=== PATIENT | male | born 1980 | race Caucasian/White ===

== ENCOUNTER 2025-05-27 23:19 | Emergency (ER) | payer MEDICARE, SELFPAY ==
--- NOTE | 2025-05-27 23:21 | ECG_ITS ---
Test Reason : CP Blood Pressure : */* mmHG Vent. Rate : 56 BPM Atrial Rate : 56 BPM P-R Int : 178 ms QRS Dur : 94 ms QT Int : 468 ms P-R-T Axes : 21 0 46 degrees QTcB Int : 451 ms Sinus bradycardia Septal infarct , age undetermined Abnormal ECG No previous ECGs available Referred By: Generic ED Physician Electronically Signed By: Bacilio Corey
[2025-05-27 23:30] VITALS: BP 91/52; PULSE 55; RESP 16; TEMP 35.9; O2SAT 99; BMI 26.6
[2025-05-27 23:52] LABS: MANUAL DIFF FLAG NO
[2025-05-27 23:53] LABS: Hematocrit 42.8 % (42.0-52.0); Hemoglobin 14.3 g/dl (14.0-18.0); Imm Gran Abs Auto 0.04 X10*3/uL (0.00-0.03); Imm Gran Pct Auto 0.4 % (0.0-0.4); Lymphocytes Absolute Auto 2.4 X10*3/uL (1.2-4.9); Mean Corpuscular HGB Conc 33.4 g/dl (31.0-36.0); Mean Corpuscular Hemoglobin 30.6 pg (27.0-33.0); Mean Corpuscular Volume 91.6 fL (80.0-98.0); NRBC Abs Auto 0.000 X10*3/uL (0.0-0.012); NRBC Pct Auto 0.0 /100WBC (0.0-0.2); Platelet Count 248 X10*3/uL (160-400); Red Blood Count 4.67 X10*6/uL (4.60-5.80); White Blood Count 10.5 X10*3/uL (4.8-10.8)
[2025-05-28 00:02] VITALS: BP 100/59; PULSE 55; RESP 16; O2SAT 97
[2025-05-28 00:07] LABS: Alanine Aminotransferase 15 U/L (0-40); Albumin Level 4.6 g/dL (3.5-5.0); Alkaline Phosphatase 85 U/L (39-117); Anion Gap 14 (12-20); Aspartate Amino Transferase 21 U/L (5-37); Blood Urea Nitrogen 12 mg/dL (9-16); Calcium 9.2 mg/dL (8.4-10.2); Carbon Dioxide 23 mmol/L (22-29); Chloride 108 mmol/L (96-108); Creatinine Clr Calc Pharmacy 120.1; Estimated Glomerular Filt Rate > 60; Potassium 3.6 mmol/L (3.3-5.1); Sodium 141 mmol/L (135-145); Total Protein 7.5 g/dL (6.5-8.0)
--- OUTSIDE RECORDS SUMMARY | 2025-05-28 00:13 | XMS_ITS | Patient Health Record ---
Author Organization [id number] [facility] Address [address] [facility] [address] [place], [place] [id number] Support Name Relationship Address Phone EVETTEYASMIN VAZQUEZCA Emergency Contact [address] [place] [address] DILLAN JAMES Guarantor Unknown [phone] Reason For Referral No Information Plan Of Treatment No Information Insurance Providers Payer Name Payer Address Payer Phone Subscriber Number Group Number Insured Name Patient Relationship to Insured Coverage Start Date Coverage End Date [facility] [address] [place], [place] [id number] DILLAN JAMES Self - patient is the insured 2 2
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
[2025-05-28 00:16] LABS: Troponin-I High Sensitivity < 2.7 ng/L (<3.5-35.0)
--- NOTE | 2025-05-28 00:18 | ED.CHESTPAIN ---
HPI - Chest Pain General Chief Complaint: Chest Pain Stated Complaint: chest pain/ mental health crisis Time Seen by Provider: 05/27/25 23:51 Source: patient Mode of arrival: ambulatory Limitations: no limitations History of Present Illness ED Provider: Dr. Jacome HPI narrative: This is a 45-year-old male presented hospital today for evaluation of depression suicide ideation. Patient stated he had chest pain earlier today however denies any current chest pain at this time. Patient stated that he normally does take psychiatric medicine however he has not been taking it. He has not been following up in clinic due to concern for his safety. Patient does have history opioid use disorder he is currently on methadone 110 mg daily. Related Data Home Medications ?Medication ?Instructions ?Recorded ?Confirmed atorvastatin 80 mg tablet 80 mg PO BEDTIME 05/28/25 05/28/25 carvedilol 6.25 mg tablet 6.25 mg PO BID 05/28/25 05/28/25 gabapentin 300 mg capsule 600 mg PO TID 05/28/25 05/28/25 hydroxyzine pamoate 50 mg capsule 50 mg PO TID PRN anxiety 05/28/25 05/28/25 losartan 25 mg tablet 25 mg PO DAILY 05/28/25 05/28/25 methadone 10 mg/mL oral 110 mg PO DAILY 05/28/25 05/28/25 concentrate (Methadone Intensol) olanzapine 5 mg tablet 5 mg PO BEDTIME 05/28/25 05/28/25 tamsulosin 0.4 mg capsule 0.4 mg PO BEDTIME 05/28/25 05/28/25 topiramate 100 mg tablet 100 mg PO DAILY 05/28/25 05/28/25 trazodone 50 mg tablet 50 mg PO BEDTIME PRN insomnia 05/28/25 05/28/25 Allergies Allergy/AdvReac Type Severity Reaction Status Date / Time quetiapine (From SEROQUEL) AdvReac Intermediate PALPITATION Verified 05/27/25 23:33 S Review of Systems Review of Systems: Pertinent review of systems as mentioned in HPI. All other system otherwise negative. [facility] Past Medical History [facility] Narrative: Medical history as mentioned in HPI Social History Social History Alcohol intake: current Alcohol intake frequency: a few times a month Alcohol type: beer and hard liquor Smoked in Last 30 Days: Yes Use of substances other than those prescribed or required for medical reasons: Yes Substance Use Type: Crack/Cocaine, Heroin and IV Drugs Substance Use Frequency: Daily Substance Use Frequency Other:: every day Last Used Substance: Just Prior to Admission Any prior treatment program specific to substance use: Yes Advance Directives: No Advance Directives Information Provided: Yes Physical Exam Exam: Exam: General: Pleasant, no distress, interacting appropriately Head: Normacephalic, atraumatic ENT: oral mucosa moist, neck supple, no tracheal deviation Cardiovascular: regular rate, regular rhythm, no murmurs, rubbing, gallops Respiratory: CTAB, no wheeze, rales, rhonchi Neurological: Awake and alert, no facial droop noted Skin: Warm and dry Psychiatric: Endorses suicide ideation, depression Vital Signs: Vital Signs: Last Vital Signs Temp 97.9 F 05/28/25 12:39 Pulse 61 05/28/25 12:39 Resp 20 05/28/25 12:39 BP 96/64 05/28/25 12:39 Pulse Ox 97 05/28/25 04:44 O2 Del Method Room Air 05/28/25 04:44 BMI result Body Mass Index 26.6 Course Course Course Narrative: Time: 06:04 Date: 05/28/25 Provider: Ericka Bynum DO Patient in physician observation for psychiatric evaluation.? No acute events reported overnight. No current complaints. VS stable now initially hypotensive but responded to fluids.? Patient is in bed search status. Will continue to monitor. Reevaluation(s) Reevaluation #1: Time: 14:18 Date: 05/28/25 Provider: Ericka Bynum DO Physician observation ended at 145pm. Transfer to [facility] for inpatient psych. Medications Administered Discontinued Medications Generic Name Dose Route Start Last Admin Trade Name Crystal PRN Reason Stop Dose Admin Lactated Ringer's 1,000 mls @ 999 mls/hr 05/28/25 02:00 05/28/25 04:14 Lr IV 05/28/25 03:00 Infused .Q1H1M [facility] Infusion Lactated Ringer's 1,000 mls @ 999 mls/hr 05/28/25 04:15 05/28/25 06:54 Lr IV 05/28/25 05:15 Infused .Q1H1M [facility] Infusion Methadone HCl 40 mg 05/28/25 09:33 05/28/25 10:36 Methadone Hcl 20 Mg/2 Ml Oral.Conc PO 05/28/25 09:34 40 mg ONCE ONE Administration Medical Decision Making Medical Decision Making MDM Narrative: 45-year-old male presented hospital today for depression and suicide ideation. Review patient's EKG no sign of STEMI. Patient's troponin is negative here. Lab work is unremarkable. I do not think this is cardiac ischemia. Patient is currently asymptomatic. We will plan to obtain lab work per psychiatric protocol here. We will plan to consult care team at this time. Patient is medically cleared from my perspective. The care team evaluated the patient, patient is an inpatient bed search Differential Diagnosis Differential Diagnoses: The differential diagnosis associated with the presentation includes ACS, depression, suicide ideation Lab Data 05/27/25 23:47 05/27/25 23:47 Labs: Lab Results 05/27/25 05/27/25 05/28/25 Range/Units 23:47 23:48 02:54 WBC 10.5 (4.8-10.8) X10*3/uL RBC 4.67 (4.60-5.80) X10*6/uL Hgb 14.3 (14.0-18.0) g/dl Hct 42.8 (42.0-52.0) % MCV 91.6 (80.0-98.0) fL MCH 30.6 (27.0-33.0) pg MCHC 33.4 (31.0-36.0) g/dl RDW 14.1 (11.0-16.0) % Plt Count 248 (160-400) X10*3/uL MPV 10.5 (9.4-12.4) fL Immature Gran % (Auto) 0.4 (0.0-0.4) % Neut % (Auto) 69.4 (45-73) % Lymph % (Auto) 23.0 (20-40) % Christian % (Auto) 6.3 (2-11) % Eos % (Auto) 0.5 (0-4) % Baso % (Auto) 0.4 (0-2) % Lymph # (Auto) 2.4 (1.2-4.9) X10*3/uL Christian # (Auto) 0.7 (0.1-1.2) X10*3/uL Eos # (Auto) 0.1 (0.0-0.4) X10*3/uL Baso # (Auto) 0.0 (0.0-0.2) X10*3/uL Abs Immat Gran (auto) 0.04 H (0.00-0.03) X10*3/uL Absolute Neuts (auto) 7.3 (2.0-8.3) x10*3/uL Absolute Nucleated RBC 0.000 (0.0-0.012) X10*3/uL Nucleated RBC % (auto) 0.0 (0.0-0.2) /100WBC Sodium 141 (135-145) mmol/L Potassium 3.6 (3.3-5.1) mmol/L Chloride 108 (96-108) mmol/L Carbon Dioxide 23 (22-29) mmol/L Anion Gap 14 (12-20) BUN 12 (9-16) mg/dL Creatinine 0.76 (0.5-1.4) mg/dL Estim Creat Clear Calc 120.1 Estimated GFR > 60 Random Glucose 116 H (60-115) mg/dL Calcium 9.2 (8.4-10.2) mg/dL Total Bilirubin 0.9 (0.0-1.0) mg/dL AST 21 (5-37) U/L ALT 15 (0-40) U/L Alkaline Phosphatase 85 (39-117) U/L Troponin I High Sens < 2.7 (<3.5-35.0) ng/L Total Protein 7.5 (6.5-8.0) g/dL Albumin 4.6 (3.5-5.0) g/dL Urine Color Yellow Urine Appearance Clear Urine pH 5.5 (5.0-9.0) Ur Specific [place] 1.010 (1.005-1.025) Urine Protein Negative (Neg-Trace) mg/dL Urine Glucose (UA) Negative (Negative) mg/dL Urine Ketones Negative (Negative) mg/dL Urine Blood Negative (Negative) Urine Nitrite Negative (Negative) Ur Leukocyte Esterase Negative (Negative) Urine RBC 0-2 (0-2) /HPF Urine WBC 0-5 (0-5) /HPF Ur Squamous Epith Cells 0-2 (0-2) /HPF Urine Bacteria None Seen (None Seen) Hyaline Casts 0-2 (0-2) /LPF Urine Opiates Screen Not Detected (Not Detect) Ur Buprenorphine Scrn Not Detected (Not Detect) ng/mL Ur Oxycodone Screen Not Detected (Not Detect) ng/mL Urine Methadone Screen Positive H (Not Detect) ng/mL Urine Fentanyl Screen POSITIVE H (Not Detect) Ur Barbiturates Screen Not Detected (Not Detect) Ur Phencyclidine Scrn Not Detected (Not Detect) Ur Amphetamines Screen Not Detected (Not Detect) U Benzodiazepines Scrn Not Detected (Not Detect) Urine Cocaine Screen POSITIVE H (Not Detect) U Marijuana (THC) Screen Not Detected (Not Detect) Ethyl Alcohol < 10 mg/dL Discharge Plan Discharge Clinical Impression: Suicidal ideation Patient Disposition: Xfer Psychiatric Hosp Prescriptions: No Action atorvastatin 80 mg tablet 80 mg PO BEDTIME carvedilol 6.25 mg tablet 6.25 mg PO BID trazodone 50 mg tablet 50 mg PO BEDTIME PRN (Reason: insomnia) olanzapine 5 mg tablet 5 mg PO BEDTIME hydroxyzine pamoate 50 mg capsule 50 mg PO TID PRN (Reason: anxiety) tamsulosin 0.4 mg capsule 0.4 mg PO BEDTIME losartan 25 mg tablet 25 mg PO DAILY gabapentin 300 mg capsule 600 mg PO TID topiramate 100 mg tablet 100 mg PO DAILY methadone [Methadone Intensol] 10 mg/mL Concentrate 110 mg PO DAILY Interventions: Acute Care Transfer Worksheet (ED) Last Done: 05/28/25 12:39 Discharge Date/Time: 05/28/25 14:01 Print Language: Urdu
[2025-05-28] MEDS: Lactated Ringers 1,000 ML 999 ML IV ×2 (02:26→04:22)
[2025-05-28 03:17] LABS: Cannabinoid Screen Urine Not Detected (Not Detect)
[2025-05-28 03:57] VITALS: BP 93/56
[2025-05-28 04:44] VITALS: BP 96/64; PULSE 61; RESP 20; TEMP 36.6; O2SAT 97
--- NOTE | 2025-05-28 05:48 | PC.NURSE ---
called report to Melissa in behavioral unit at this time
--- NOTE | 2025-05-28 06:29 | PC.NURSE ---
walked patient with security to pod without any difficulty
--- NOTE | 2025-05-28 07:21 | PC.NURSE ---
Assumed care, report received. Pt is sleeping and provided breakfast.
[2025-05-28 08:18] LABS: Appearance Urine Clear; Glucose Urine UA Negative (Negative); PH 5.5 (5.0-9.0); Specific Gravity - Urine 1.010 (1.005-1.025)
--- NOTE | 2025-05-28 09:57 | HE.PHANOTE ---
Re Methadone Pt receives 110mg from [facility], last dose was given on 05-19-25 with no take home bottles, so patient has missed ~9 doses.
[2025-05-28] MEDS: methADONE HCl 20 MG/2 ML ORAL.CONC 40 MG PO (10:36)
--- NOTE | 2025-05-28 11:38 | MHC.CARE ---
Addendum entered by Scarlet Mclaughlin RN 05/28/25 13:09: He will now be admitted to [facility]; Address [address] [place] [address]. Original Note: Pt was accepted to [facility]. The address is [address] [place] [id number] The accepting doc is Dr. Vazquez and the ETA is 4pm. CARE Team and pod RN were both notified. No nurse to nurse is required.
[2025-05-28 12:39] VITALS: BP 96/64; PULSE 61; RESP 20; TEMP 36.6
== END 2025-05-28 14:01 ==
PROVIDERS: Emergency Medicine; Emergency Provider Student in an Organized Health Care Education/Training Program
DX: F33.1 Major depressive disorder, recurrent, moderate (principal); R07.89 Other chest pain; R45.851 Suicidal ideations; F14.90 Cocaine use, unspecified, uncomplicated; R11.0 Nausea; Z79.891 Long term (current) use of opiate analgesic; Z79.899 Other long term (current) drug therapy; Z51.81 Encounter for therapeutic drug level monitoring
CPT/HCPCS: 36415; 80053; 80307; 81001; 84484; 85025; 93005; 96360; 96361; 99285; J7120; S9485

== ENCOUNTER → 2025-05-27 23:21 | Outpatient (BNV) | payer MEDICARE, SELFPAY | PROVIDERS: Emergency Provider Student in an Organized Health Care Education/Training Program; Visit Provider Internal Medicine Cardiovascular Disease | DX: R00.1 Bradycardia, unspecified (principal) | CPT/HCPCS: 93010 ==

== ENCOUNTER 2025-06-23 18:14 | Inpatient (IN) | payer MEDICARE, MEDICAID, SELFPAY ==
--- OUTSIDE RECORDS SUMMARY | 2025-06-22 19:37 | XMS_ITS | Encounter Summary ---
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 specimen obtained by clean catch procedure / Unknown Non-blood Collection / Unknown 06/22/2025 8:22 PM EST 06/22/2025 8:50 PM EST Renee Gama MD LAB URINE ORDERABLES Final Res ult Performing Organization Address [facility]/ZIP Co de Phone Number [facility] [address] [place] [address], * (ABNORMAL) Buprenorphine screen, urine (06/22/2025 8:22 PM EST) Buprenorphine Screen Urine Positive (A) Negative LAB CHEMISTRY METHOD 06/22/2025 9:42 PM EST [facility] Urine Urine specimen obtained by clean catch procedure / Unknown Non-blood Collection / Unknown 06/22/2025 8:22 PM EST 06/22/2025 8:50 PM EST Narrative [facility] - 06/22/2025 9:42 PM EST Assay cutoff 5 ng/mL Semi-quantitative assay for screening purposes only. Unconfirmed screening result should not be used for non-medical purposes. *ALTERNATE METHOD CONFIRMATION DONE UPON REQUEST ONLY* Renee Gama MD LAB URINE ORDERABLES Final Res ult Performing Organization Address [facility] de Phone Number [facility] [address] [place] [address], * (ABNORMAL) Drug abuse screen 8a panel, urine (06/22/2025 8:22 PM EST) Amphetamine Screen, Ur Negative Negative LAB CHEMISTRY METHOD 9:51 PM EST [facility] Comment:Certain OTC medicati ons containing ephedrine, phenylephrine, pseudoephedrine and phenylpropanolamine can cause false positive results. Barbiturate Screen, Ur Negative Negative LAB CHEMISTRY METHOD 9:51 PM EST [facility] Benzodiazepine Screen, Ur Negative Negative LAB CHEMISTRY METHOD 5 9:51 PM EST [facility] Cocaine Screen, Ur Positive(A ) Negative LAB CHEMISTRY METHOD 5 9:51 PM [facility] Opiate Screen, Ur Negative Negative LAB CHEMISTRY METHOD 5 9:51 PM [facility] Cannabinoid (THC) Screen, Ur Negative Negative LAB CHEMISTRY METHOD 5 9:51 PM EST [facility] Comment:Specimens from patie nts taking pantoprazole sodium (Protonix) have been shown to produce false positive results. Oxycodone Screen, Ur Negative Negative LAB CHEMISTRY METHOD 5 9:51 PM [facility] Fentanyl, Ur Positive(A ) Negative LAB CHEMISTRY METHOD 9:51 PM [facility] Urine Urine specimen obtained by clean catch procedure / Unknown Non-blood Collection / Unknown 06/22/2025 8:22 PM EST 06/22/2025 8:50 PM EST Narrative [facility] - 06/22/2025 9:51 PM EST Assay cutoffs: Amphetamines 1000 ng/mL Barbiturates 200 ng/mL Benzodiazepines 200 ng/mL Cocaine 300 ng/mL Fentanyl 1 ng/mL Opiates 300 ng/mL Oxycodone 100 ng/mL THC 50 ng/mL Semi-quantitative assay for screening purposes only. Unconfirmed screening result should not be used for non-medical purposes. *ALTERNATE METHOD CONFIRMATION DONE UPON REQUEST ONLY* us Renee Gama MD LAB URINE ORDERABLES Final Res ult [facility] [address] [place] [address], * (ABNORMAL) Salicylate level (06/22/2025 8:22 PM EST) Salicylate Level <1.7(L) 2.0 - 29.0 mg/dL LAB CHEMISTRY METHOD 06/22/2025 9:45 PM EST [facility] Blood Venous blood specimen / Unknown Venipuncture / Unknown 06/22/2025 8:22 PM EST 06/22/2025 8:49 PM EST us Renee Gama MD LAB BLOOD ORDERABLES Final Res ult Performing Organization Address [facility]/ZIP Co de Phone Number [facility] [address] [place] [address], [place] [phone] * (ABNORMAL) Acetaminophen level (06/22/2025 8:22 PM EST) Acetaminophen Level <2.0(L) 10.0 - 30.0 mcg/mL LAB CHEMISTRY METHOD 06/22/2025 9:48 PM EST [facility] Blood Venous blood specimen / Unknown Venipuncture / Unknown 06/22/2025 8:22 PM EST 06/22/2025 8:49 PM EST us Renee Gama MD LAB BLOOD ORDERABLES Final Res ult Performing Organization Address [facility] de Phone Number [facility] [address] [place] [address], [place] [phone] * Ethanol (06/22/2025 8:22 PM EST) Ethanol Level 5 0 - 10 mg/dL LAB CHEMISTRY METHOD 06/22/2025 9:45 PM EST [facility] Blood Venous blood specimen / Unknown Venipuncture / Unknown 06/22/2025 8:22 PM EST 06/22/2025 8:49 PM EST us Renee Gama MD LAB BLOOD ORDERABLES Final Res ult Performing Organization Address City/[facility] Co de Phone Number [facility] [address] [place] [address], [place] [phone] * (ABNORMAL) Comprehensive metabolic panel (06/22/2025 8:22 PM EST) Sodium 139 133 - 145 mmol/L LAB CHEMISTRY METHOD 06/22/2025 9:46 PM [facility] Potassium 4.0 3.5 - 5.5 mmol/L LAB CHEMISTRY METHOD 06/22/2025 9:46 PM [facility] Chloride 104 96 - 110 mmol/L LAB CHEMISTRY METHOD 06/22/2025 9:46 PM [facility] CO2 28 21 - 32 mmol/L LAB CHEMISTRY METHOD 06/22/2025 9:46 PM [facility] Anion Gap 7 3 - 11 LAB CHEMISTRY METHOD 06/22/2025 9:46 PM [facility] Glucose 99 70 - 100 mg/dL LAB CHEMISTRY METHOD 06/22/2025 9:46 PM [facility] BUN 9 5 - 25 mg/dL LAB CHEMISTRY METHOD 06/22/2025 9:46 PM [facility] Creatinine 0.80 0.70 - 1.30 mg/dL LAB CHEMISTRY METHOD 06/22/2025 9:46 PM [facility] eGFR 110 >=60 mL/min/1. 73m2 LAB CHEMISTRY METHOD 06/22/2025 9:46 PM [facility] Comment:Calculation based on the Chronic Kidney Disease Epidemiology Collaboration (CKD-EPI) equation refit without adjustment for race. BUN/Creatinine Ratio 11.3 LAB CHEMISTRY METHOD 06/22/2025 9:46 PM [facility] Calcium 9.4 8.5 - 10.5 mg/dL LAB CHEMISTRY METHOD 06/22/2025 9:46 PM [facility] AST (SGOT) 15 10 - 42 unit/L LAB CHEMISTRY METHOD 06/22/2025 9:46 PM [facility] ALT (SGPT) 37 10 - 60 unit/L LAB CHEMISTRY METHOD 06/22/2025 9:46 PM [facility] Alkaline Phosphatase 98 42 - 121 unit/L LAB CHEMISTRY METHOD 06/22/2025 9:46 PM EST [facility] Total Protein 8.2(H) 6.0 - 8.0 g/dL LAB CHEMISTRY METHOD 06/22/2025 9:46 PM EST [facility] Albumin 4.2 3.2 - 5.0 g/dL LAB CHEMISTRY METHOD 06/22/2025 9:46 PM [facility] Total Bilirubin 0.5 0.0 - 1.4 mg/dL LAB CHEMISTRY METHOD 06/22/2025 9:46 PM [facility] Blood Venous blood specimen / Unknown Venipuncture / Unknown 06/22/2025 8:22 PM EST 06/22/2025 8:49 PM EST us Renee Gama MD LAB BLOOD ORDERABLES Final Res ult [facility] [address] [place] [address], documented in this encounter Visit Diagnoses Diagnosis Suicidal ideation- Primary documented in this encounter Administered Medications Active Administered Medications - up to 3 most recent administrations Medication Order MAR Action Action Date Dose Rate Site methadone (DOLOPHINE) tablet 30 mg 30 mg, oral, Daily, First dose on Sat06/23/25 at 0900, TDD 110 mg Given 06/23/2025 9:25 AM EST 30 mg methadone (METHADOSE) dispersible tablet 80 mg 80 mg, oral, Daily, First dose (after last modification) on Sat06/23/25 at 0900, TDD 110 mg Disperse total dose in ~120 mL of water, orange juice, or other acidic fruit beverage prior to administration; if insoluble excipients remain and do not entirely dissolve, add a small amount of liquid to cup and administer remaining mixture. Do not chew or swallow tablet before dispersing in liquid. Given 06/23/2025 9:23 AM EST 80 mg Inactive Administered Medications - up to 3 most recent administrations Medication Order MAR Action Action Date Dose Rate Site nicotine (NICODERM CQ) 14 mg/24 hr patch 1 patch 1 patch, transdermal, Administer over 24 Hours, Once, On Sat06/23/25 at 1430, For 1 dose Patch Applied 06/23/2025 4:11 PM EST 1 patch Right Arm documented in this encounter Historical Medications * This list may reflect changes made after this encounter. methadone (DOLOPHINE) 10 mg tablet Take 11 tablets (110 mg total) by mouth 1 (one) time each day at the same time. Max Daily Amount: 110 mg added in this encounter Active and Recently Administered Medications Times are shown in EST. Scheduled Medication Order 06/21/2025 06/22/2025 06/23/2025 methadone (DOLOPHINE) tablet 30 mg(Linked Group 1) 30 mg, oral, Daily, First dose on Sat06/23/25 at 0900, TDD 110 mg 924 (Given - Provid er: Arlene Burgos RN) methadone (METHADOSE) dispersible tablet 80 mg(Linked Group 1) 80 mg, oral, Daily, First dose (after last modification) on Sat06/23/25 at 0900, TDD 110 mg Disperse total dose in ~120 mL of water, orange juice, or other acidic fruit beverage prior to administration; if insoluble excipients remain and do not entirely dissolve, add a small amount of liquid to cup and administer remaining mixture. Do not chew or swallow tablet before dispersing in liquid. 922 (Given - Provid er: Arlene Burogs RN) nicotine (NICODERM CQ) 14 mg/24 hr patch 1 patch 1 patch, transdermal, Administer over 24 Hours, Once, On Sat06/23/25 at 1430, For 1 dose 1611 (Patch Applied - Provider: Caitlyn Gomez RN) Linked Groups Order Group 1: methadone (METHADOSE) dispersible tablet 80 mgJump to med 80 mg, oral, Daily, First dose (after last modification) on Sat06/23/25 at 0900, TDD 110 mg Disperse total dose in ~120 mL of water, orange juice, or other acidic fruit beverage prior to administration; if insoluble excipients remain and do not entirely dissolve, add a small amount of liquid to cup and administer remaining mixture. Do not chew or swallow tablet before dispersing in liquid. And methadone (DOLOPHINE) tablet 30 mgJump to med 30 mg, oral, Daily, First dose on Sat06/23/25 at 0900, TDD 110 mg documented in this encounter Orders Medications Ordered That Artur ht Not Have Been Administered Count Last Ordered Date First Ordered Date methadone (METHADOSE) disper sible tablet 110 mg 1 06/23/2025 Diet Count Last Ordered Date First Orde red Date ADULT DIET 1 06/22/2025 Consult Count Last Ordered Date First Orde red Date IP CONSULT TO SUPERVISOR CELLARS 1 06/23/2025 Precaution Count Last Ordered Date First Orde red Date SUICIDE PRECAUTIONS 1 06/22/2025 Privilege Level Count Last Ordered Date First O rdered Date 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
[2025-06-23 18:35] VITALS: BP 143/94; PULSE 68; RESP 16; TEMP 36.8; O2SAT 98
--- OUTSIDE RECORDS SUMMARY | 2025-06-23 19:13 | XMS_ITS | Patient Health Record ---
Author Organization [facility] Billing Info Address [address] [place] [id number] Support Name Relationship Address Phone EVETTEMISHA VAZQUEZ Emergency Contact [address] [place] [address] DILLAN JAMES Guarantor Unknown [phone] Reason For Referral No Information Plan Of Treatment No Information Insurance Providers Payer Name Payer Address Payer Phone Subscriber Number Group Number Insured Name Patient Relationship to Insured Coverage Start Date Coverage End Date [facility] [address] [place], [place] [id number] [phone] [id number] DILLAN JAMES Self - patient is the insured 2 2
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
[2025-06-23 21:19] VITALS: BMI 25.3
--- NOTE | 2025-06-23 21:28 | HE.PHANOTE ---
Methadone Methadone verification form received from nursing. Patient gets methadone 110 mg daily from [facility] for [facility] in [facility] ( [phone]). Patients last dose per Hillary was on 06/22/25 @4394
[2025-06-23] MEDS: Nicotine Polacrilex Lozenge 4 MG LOZENGE BUCCAL (22:07)
[2025-06-24] MEDS: Nicotine Polacrilex Lozenge 4 MG LOZENGE BUCCAL ×9 (00:45→22:53)
--- NOTE | 2025-06-24 03:19 | PC.ADMIT ---
Vinny Reeves is a 45YOM with hx of past suicide attempts plus [place] last year s/p x3 stents placed, who presents from [facility] with SI. Pt reports he had increased thoughts of hurting himself last 2 week. A couple of weeks ago, he attempted to OD on his cardiac meds. On 06/21/25, he attempted by sizing a belt or a rope to hand himself with. Pt has not been on his antidepressants for about a week as he felt that they were making him feel worse. His tox. screen is +ve for Buprenorphine,methadone, fentanyl and cocaine. Pt reported currently being homeless because he's no longer welcomed to his stay with his dad anymore after his suicide attempt. pt arrived to around 18:30, with admitting diagnosis for unspecified Depression. pt is alert and oriented x4, signed a CV. Pt is pleasant, easily engages, and complaint with admission process. pt reports depression and anxiety and was medicated later with prn Atarax 0.5mg po. he is asymptomatic of psychiatric symptoms. pt denied SI/HI/AVH, contracted for safety, ambulates independently, denies pain, VSS unremarkable, no visible skin issues as reported by the admitting RN. This nurse unable to complete med rec. as pt's pharmacy ([facility]) was closed and pt has no records from his paperwork from [facility]. Pt is on methadone 110mg daily. Pt is being observed on 5mins safety check, belongings are inventoried/secured.
--- NOTE | 2025-06-24 06:50 | HO.PM.IMCN ---
History of Present Illness Data of Consult Service Date: 06/24/25 Requesting physician: Rich Oswald Primary Care Provider: None Physician HPI Reason for consult: medical H&P Pt is a 45 yo male with a past medical history significant for SD/stent, HTN, BPH, substance use disorder, PTSD and homelessness, admitted to adult Psychiatry for a suicide attempt. Hospitalist consultation placed for medical H and P. Medical history and medications were reviewed with the patient. He has no acute medical concerns including chest pain, shortness of breath, nausea, vomiting, fever, chills, urinary symptoms or upper respiratory symptoms. Review of Systems Review of Systems: Yes all other systems are reviewed and are negative [facility] Medical History (Updated 06/24/25 @ 06:56 by Ila Carpio PA-C) Substance use disorder BPH (benign prostatic hyperplasia) HTN (hypertension) CAD (coronary artery disease) History of SD (myocardial infarction) Functional capacity: independent ambulation Social History Alcohol intake: current Alcohol intake frequency: a few times a month Alcohol type: beer and hard liquor Patient Tobacco Use Status: Former Tobacco user Tobacco use type: Cigarette Cigarette Packs Per Day: 0.75 Cigarettes Per Day: 15.0 Smoked in Last 30 Days: Yes e-Cigarette/Vaping Use: Currently Using Frequency of e-Cigarette/Vaping Use: daily Patient Interested in Nicotine Replacement: Yes Substance Use Type: Crack/Cocaine, Heroin and IV Drugs Currently Displaying Signs/Symptoms of Drug Intoxication Withdrawal: No Advance Directives: No Advance Directives Information Provided: No Do you have thoughts of harming others: None Do you have a plan to hurt others: No Plan How much weight loss: 34pounds or more Eating poorly because of decreased appetite: No Nutrition Risks: No Nutritional Risk Meds Allergies Allergy/AdvReac Type Severity Reaction Status Date / Time quetiapine (From SEROQUEL) AdvReac Intermediate PALPITATION Verified 05/27/25 23:33 S Active Medications: Current Medications Acetaminophen (Acetaminophen 325 Mg Tablet) 650 mg PO Q6H PRN PRN Reason: Headache/Pain, Scale 1-10 Al Hydroxide/Mg Hydroxide (Magnesium Hydrox/Alum Hydrox 30 Ml Oral.Susp) 30 ml PO Q6H PRN PRN Reason: Heartburn/Nausea Hydroxyzine HCl (Hydroxyzine Hcl 10 Mg Tablet) 5 mg PO Q6H PRN PRN Reason: mild anxiety Last Admin: 06/23/25 22:52 Dose: 5 mg Magnesium Hydroxide (Milk Of Magnesia 30 Ml Oral.Susp) 30 ml PO DAILY PRN PRN Reason: Constipation Methadone HCl (Methadone Hcl 20 Mg/2 Ml Oral.Conc) 110 mg PO DAILY LEIDA Nicotine (Nicotine 21 Mg Patch.Td24) 21 mg TRANSDERMA DAILY PRN PRN Reason: nicotine craving Nicotine Polacrilex (Nicotine Polacrilex Lozenge 4 Mg Lozenge) 4 mg BUCCAL Q2H PRN PRN Reason: Nicotine Cravings Last Admin: 06/24/25 06:49 Dose: 4 mg Olanzapine (Olanzapine 5 Mg Tablet) 5 mg PO BID PRN PRN Reason: agitation Trazodone HCl (Trazodone Hcl 50 Mg Tablet) 50 mg PO BEDTIME MRX1 PRN PRN Reason: Insomnia Home Medications ?Medication ?Instructions ?Recorded ?Confirmed ?Last Taken ?Type atorvastatin 80 mg tablet 80 mg PO BEDTIME 05/28/25 05/28/25 03/12/25 History carvedilol 6.25 mg tablet 6.25 mg PO BID 05/28/25 05/28/25 03/12/25 History gabapentin 300 mg capsule 600 mg PO TID 05/28/25 05/28/25 03/12/25 History hydroxyzine pamoate 50 mg capsule 50 mg PO TID PRN anxiety 05/28/25 05/28/25 03/12/25 History losartan 25 mg tablet 25 mg PO DAILY 05/28/25 05/28/25 03/12/25 History methadone 10 mg/mL oral 110 mg PO DAILY 05/28/25 06/23/25 06/22/25 History concentrate (Methadone Intensol) olanzapine 5 mg tablet 5 mg PO BEDTIME 05/28/25 05/28/25 03/12/25 History tamsulosin 0.4 mg capsule 0.4 mg PO BEDTIME 05/28/25 05/28/25 03/12/25 History topiramate 100 mg tablet 100 mg PO DAILY 05/28/25 05/28/25 03/12/25 History trazodone 50 mg tablet 50 mg PO BEDTIME PRN insomnia 05/28/25 05/28/25 03/12/25 History Physical Exam Vital Signs and Narrative: Vital Signs: Last Vital Signs Temp 98.2 F 06/23/25 18:35 Pulse 68 06/23/25 18:35 Resp 16 06/23/25 18:35 BP 143/94 H 06/23/25 18:35 Pulse Ox 98 06/23/25 18:35 O2 Del Method Room Air 06/23/25 18:35 BMI result Body Mass Index 25.3 General: AOx3, no acute distress Resp: CTA bilaterally CVS: S1, S2, RRR GI: +BS, NT, no distention Skin: Warm, dry Neuro: Cranial nerves II-XII grossly intact bilaterally. Motor grossly intact bilaterally. strength equal bilateral upper and lower extremities throughout. Extremities: No pitting edema Psych: Appropriate affect Assessment and Plan (1) Medical clearance for psychiatric admission: Status: Acute Plan Pt is a 45 yo male with a past medical history significant for SD/stent, HTN, BPH, substance use disorder, PTSD and homelessness, admitted to adult Psychiatry for a suicide attempt. SI/mood - plan per psych hx SD/stent - pt has not been on brillinta since 11/2024, SD was over 1 year ago, no longer needed - statin and ASA 81 HTN - losartan BPH - flomax NATALIE - methadone - addiction med consult Thank you for allowing me to participate in the pt's care. Signing off. Please contact the medical team if any questions or concerns.
[2025-06-24 07:00] VITALS: BMI 25.5
[2025-06-24] MEDS: methADONE HCl 20 MG/2 ML ORAL.CONC 110 MG PO (07:46)
[2025-06-24 07:55] VITALS: BP 126/74; PULSE 67; TEMP 36.2; O2SAT 96
--- NOTE | 2025-06-24 08:32 | HO.PM.IMCN ---
History of Present Illness Data of Consult Service Date: 06/24/25 Primary Care Provider: None Physician HPI Reason for consult: Medical consult 45-year-old male with past medical history of PTSD, depression, anxiety, bipolar disorder polysubstance use disorder on methadonecoronary artery disease, with a history of an GA, BPH, hypertension, substance use disorder, presented to [facility] ED with suicidal ideation. Patient has had past suicidal attempts, last week took a lot of his heart medications and attempt to kill himself. His tox screen was positive for buprenorphine, methadone, fentanyl and cocaine. Metabolic panelnormal with no evidence of renal or kidney dysfunction or electrolyte imbalances. CBC without leukocytosis or anemia. Alcohol level 5 [facility] Medical History (Updated 06/24/25 @ 06:56 by Ila Carpio PA-C) Substance use disorder BPH (benign prostatic hyperplasia) HTN (hypertension) CAD (coronary artery disease) History of GA (myocardial infarction) Functional capacity: independent ambulation Social History Alcohol intake: current Alcohol intake frequency: a few times a month Alcohol type: beer and hard liquor Patient Tobacco Use Status: Former Tobacco user Tobacco use type: Cigarette Cigarette Packs Per Day: 0.75 Cigarettes Per Day: 15.0 Smoked in Last 30 Days: Yes e-Cigarette/Vaping Use: Currently Using Frequency of e-Cigarette/Vaping Use: daily Patient Interested in Nicotine Replacement: Yes Substance Use Type: Crack/Cocaine, Heroin and IV Drugs Currently Displaying Signs/Symptoms of Drug Intoxication Withdrawal: No Advance Directives: No Advance Directives Information Provided: No Do you have thoughts of harming others: None Do you have a plan to hurt others: No Plan How much weight loss: 34pounds or more Eating poorly because of decreased appetite: No Nutrition Risks: No Nutritional Risk service: Yes Sexual orientation: Straight/Heterosexual Meds Allergies Allergy/AdvReac Type Severity Reaction Status Date / Time quetiapine (From SEROQUEL) AdvReac Intermediate PALPITATION Verified 05/27/25 23:33 S Active Medications: Current Medications Acetaminophen (Acetaminophen 325 Mg Tablet) 650 mg PO Q6H PRN PRN Reason: Headache/Pain, Scale 1-10 Al Hydroxide/Mg Hydroxide (Magnesium Hydrox/Alum Hydrox 30 Ml Oral.Susp) 30 ml PO Q6H PRN PRN Reason: Heartburn/Nausea Aspirin (Aspirin 81 Mg Tab.Chew) 81 mg PO DAILY LEIDA Atorvastatin Calcium (Atorvastatin Calcium 80 Mg Tablet) 80 mg PO BEDTIME LEIDA Hydroxyzine HCl (Hydroxyzine Hcl 10 Mg Tablet) 5 mg PO Q6H PRN PRN Reason: mild anxiety Last Admin: 06/23/25 22:52 Dose: 5 mg Losartan Potassium (Losartan Potassium 25 Mg Tablet) 25 mg PO DAILY LEIDA; Protocol Magnesium Hydroxide (Milk Of Magnesia 30 Ml Oral.Susp) 30 ml PO DAILY PRN PRN Reason: Constipation Methadone HCl (Methadone Hcl 20 Mg/2 Ml Oral.Conc) 110 mg PO DAILY LEIDA Last Admin: 06/24/25 07:46 Dose: 110 mg Nicotine (Nicotine 21 Mg Patch.Td24) 21 mg TRANSDERMA DAILY PRN PRN Reason: nicotine craving Nicotine Polacrilex (Nicotine Polacrilex Lozenge 4 Mg Lozenge) 4 mg BUCCAL Q2H PRN PRN Reason: Nicotine Cravings Last Admin: 06/24/25 06:49 Dose: 4 mg Olanzapine (Olanzapine 5 Mg Tablet) 5 mg PO BID PRN PRN Reason: agitation Tamsulosin HCl (Tamsulosin Hcl 0.4 Mg Capsule) 0.4 mg PO BEDTIME LEIDA Trazodone HCl (Trazodone Hcl 50 Mg Tablet) 50 mg PO BEDTIME MRX1 PRN PRN Reason: Insomnia Home Medications ?Medication ?Instructions ?Recorded ?Confirmed ?Last Taken ?Type atorvastatin 80 mg tablet 80 mg PO BEDTIME 05/28/25 05/28/25 03/12/25 History carvedilol 6.25 mg tablet 6.25 mg PO BID 05/28/25 05/28/25 03/12/25 History gabapentin 300 mg capsule 600 mg PO TID 05/28/25 05/28/25 03/12/25 History hydroxyzine pamoate 50 mg capsule 50 mg PO TID PRN anxiety 05/28/25 05/28/25 03/12/25 History losartan 25 mg tablet 25 mg PO DAILY 05/28/25 05/28/25 03/12/25 History methadone 10 mg/mL oral 110 mg PO DAILY 05/28/25 06/23/25 06/22/25 History concentrate (Methadone Intensol) olanzapine 5 mg tablet 5 mg PO BEDTIME 05/28/25 05/28/25 03/12/25 History tamsulosin 0.4 mg capsule 0.4 mg PO BEDTIME 05/28/25 05/28/25 03/12/25 History topiramate 100 mg tablet 100 mg PO DAILY 05/28/25 05/28/25 03/12/25 History trazodone 50 mg tablet 50 mg PO BEDTIME PRN insomnia 05/28/25 05/28/25 03/12/25 History Physical Exam Vital Signs and Narrative: Vital Signs: Last Vital Signs Temp 97.2 F 06/24/25 07:55 Pulse 67 06/24/25 07:55 Resp 16 06/23/25 18:35 BP 126/74 06/24/25 07:55 Pulse Ox 96 06/24/25 07:55 O2 Del Method Room Air 06/24/25 07:55 BMI result Body Mass Index 25.3 Results Labs 06/24/25 08:30
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
[2025-06-24 09:19] LABS: Alanine Aminotransferase 28 U/L (0-40); Albumin Level 4.6 g/dL (3.5-5.0); Alkaline Phosphatase 80 U/L (39-117); Anion Gap 14 (12-20); Aspartate Amino Transferase 29 U/L (5-37); Blood Urea Nitrogen 9 mg/dL (9-16); Calcium 9.4 mg/dL (8.4-10.2); Carbon Dioxide 23 mmol/L (22-29); Chloride 108 mmol/L (96-108); Cholesterol 140 mg/dL (<200); Creatinine Clr Calc Pharmacy 123.4; Estimated Glomerular Filt Rate > 60; HDL Cholesterol 42 mg/dL (>40); Potassium 4.2 mmol/L (3.3-5.1); Sodium 141 mmol/L (135-145); Total Protein 7.7 g/dL (6.5-8.0); Triglycerides 120 mg/dL (<150)
[2025-06-24 09:23] LABS: Free T4 (Free Thyroxine) 1.10 ng/dL (0.71-1.85); Thyroid Stimulating Hormone 1.12 uIU/mL (0.32-4.0)
[2025-06-24] MEDS: buPROPion HCl XL 150 MG TAB.ER.24H PO (14:09)
[2025-06-24 20:00] VITALS: BP 163/102; PULSE 68; RESP 16; TEMP 36.4; O2SAT 97
[2025-06-24 20:09] VITALS: BP 155/95
[2025-06-24] MEDS: Milk of Magnesia 30 ML ORAL.SUSP PO (20:52)
[2025-06-25] MEDS: Nicotine Polacrilex Lozenge 4 MG LOZENGE BUCCAL ×6 (06:53→21:05)
[2025-06-25 08:00] VITALS: BP 102/51; PULSE 60; RESP 18; TEMP 2.1; TEMP 35.8; O2SAT 100
[2025-06-25] MEDS: methADONE HCl 20 MG/2 ML ORAL.CONC 110 MG PO (08:00)
[2025-06-25] MEDS: buPROPion HCl XL 150 MG TAB.ER.24H PO (09:03)
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
--- NOTE | 2025-06-25 15:56 | PM.EVENT ---
Event Note Date of Service: 06/25/25 Event Note: Patient is reporting increased discomfort in his right great toe. He reports an ingrown toenail. Reports his toenails painful to touch. We will order warm soaks t.i.d. and mupirocin. If no improvement notify hospitalist. Time Spent With Patient Time: Total time managing care of this patient today ____ minutes.
--- NOTE | 2025-06-25 16:56 | MHC.RECOVRN ---
Consult received by Addiction Medicine for NATALIE.? Pt is currently receiving 110mg methadone daily at [facility]. He reports continued use despite MAT. Pt using 10-50 bags of IV heroin and smoking up to 3.5 grams of crack cocaine daily Reports numerous lengths of abstinence including 1, 3, and 9 years which he attributes to attending [facility] and NA meetings. He is also [facility] to [facility].? Pt reports experiencing hot and cold flashes, restless legs, and runny nose. He feels he would benefit from an increase in methadone. ?I was best on 150mg but the most was 200?. Contacted provider, requested an additional dose of 10mg to be given this evening and daily dose be changed to 120mg effective tomorrow. Provider in agreement and order to be placed.? Discussed and provided written education and resources for harm reduction techniques including utilizing [employer] for sterile supplies and drug testing, harm reduction techniques such as not sharing needles, utilizing a test shot when using a supply from a new supplier, having narcan readily available and utilizing [employer] to to decrease risk for overdose. Also provided education about the current drug supply and cutting agents used.? Pt plans to seek CSS placement and continue methadone dosing in the community. He declined the need for a executive coach and was provided TW contact information if needed.? ACS team available as needed for ongoing support and resources.?
[2025-06-25] MEDS: methADONE HCl 20 MG/2 ML ORAL.CONC 10 MG PO (16:59)
[2025-06-25 20:18] VITALS: BP 110/68; PULSE 80; RESP 16; TEMP 36.7; O2SAT 97
[2025-06-26 07:40] VITALS: BP 107/60; PULSE 79; RESP 18; O2SAT 96
[2025-06-26] MEDS: methADONE HCl 20 MG/2 ML ORAL.CONC 120 MG PO (07:40)
[2025-06-26] MEDS: Nicotine Polacrilex Lozenge 4 MG LOZENGE BUCCAL ×7 (07:41→23:10)
[2025-06-26] MEDS: buPROPion HCl XL 150 MG TAB.ER.24H PO (07:41)
--- NOTE | 2025-06-26 10:17 | MHC.RECOVRN ---
TW checked in with pt to assess withdrawal symptom management. He reports good effect last evening with additional order for 10mg of methadone but does report some continued restlessness. Pt inquired about titrating to a total of 150mg methadone QD. Information to be reviewed w/ provider for potential titration. ACS team to continue to follow and available as needed for ongoing support.
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
[2025-06-26 19:45] VITALS: BP 115/68; PULSE 74; RESP 16; TEMP 35.9; O2SAT 98
[2025-06-27] MEDS: Nicotine Polacrilex Lozenge 4 MG LOZENGE BUCCAL ×7 (01:12→21:06)
[2025-06-27 07:27] VITALS: BP 122/72; PULSE 68; RESP 16; TEMP 36.8; O2SAT 98
[2025-06-27] MEDS: methADONE HCl 20 MG/2 ML ORAL.CONC 120 MG PO (07:35)
[2025-06-27] MEDS: buPROPion HCl XL 150 MG TAB.ER.24H PO (07:36)
[2025-06-27 19:30] VITALS: BP 111/59; PULSE 67; TEMP 35.9; O2SAT 96
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
[2025-06-28] MEDS: Nicotine Polacrilex Lozenge 4 MG LOZENGE BUCCAL ×7 (07:02→20:14)
[2025-06-28] MEDS: methADONE HCl 20 MG/2 ML ORAL.CONC 120 MG PO (07:44)
[2025-06-28 08:10] VITALS: BP 116/69; PULSE 64; TEMP 36; O2SAT 96
[2025-06-28] MEDS: buPROPion HCl XL 150 MG TAB.ER.24H PO (08:35)
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
[2025-06-28 19:48] VITALS: BP 128/67; PULSE 67; TEMP 35.6; O2SAT 98
[2025-06-29] MEDS: Nicotine Polacrilex Lozenge 4 MG LOZENGE BUCCAL ×6 (03:51→21:15)
[2025-06-29] MEDS: methADONE HCl 20 MG/2 ML ORAL.CONC 130 MG PO (07:50)
[2025-06-29 08:00] VITALS: BP 117/74; PULSE 74; RESP 17; TEMP 36.6; O2SAT 97
[2025-06-29] MEDS: buPROPion HCl XL 150 MG TAB.ER.24H PO (08:41)
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
[2025-06-29 20:00] VITALS: BP 114/69; PULSE 61; RESP 18; TEMP 35.6; O2SAT 96
[2025-06-30] MEDS: Nicotine Polacrilex Lozenge 4 MG LOZENGE BUCCAL ×9 (02:14→23:12)
[2025-06-30] MEDS: methADONE HCl 20 MG/2 ML ORAL.CONC 130 MG PO (07:39)
[2025-06-30 08:00] VITALS: BP 118/77; PULSE 64; RESP 16; TEMP 36.4; O2SAT 97
[2025-06-30] MEDS: buPROPion HCl XL 150 MG TAB.ER.24H PO (08:16)
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
[2025-06-30 20:17] VITALS: BP 123/76; PULSE 70; RESP 16; TEMP 36.6; O2SAT 97
[2025-07-01] MEDS: Nicotine Polacrilex Lozenge 4 MG LOZENGE BUCCAL ×9 (01:30→23:10)
[2025-07-01 07:00] VITALS: BMI 26.8
[2025-07-01] MEDS: methADONE HCl 20 MG/2 ML ORAL.CONC 130 MG PO (07:44)
[2025-07-01 08:00] VITALS: BP 110/70; PULSE 62; TEMP 36.1; O2SAT 96
[2025-07-01] MEDS: buPROPion HCl XL 300 MG TAB.ER.24H PO (08:19)
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
[2025-07-01] MEDS: methADONE HCl 20 MG/2 ML ORAL.CONC 10 MG PO (11:06)
[2025-07-01 20:00] VITALS: BP 120/65; PULSE 69; RESP 18; TEMP 36.5; O2SAT 97
[2025-07-02] MEDS: Nicotine Polacrilex Lozenge 4 MG LOZENGE BUCCAL ×9 (01:17→22:47)
[2025-07-02] MEDS: methADONE HCl 20 MG/2 ML ORAL.CONC 140 MG PO (07:57)
[2025-07-02 08:19] VITALS: BP 106/58; PULSE 67; RESP 16; TEMP 36.8; O2SAT 98
[2025-07-02] MEDS: buPROPion HCl XL 300 MG TAB.ER.24H PO (08:22)
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
[2025-07-02 20:00] VITALS: BP 117/67; PULSE 72; RESP 18; TEMP 37.2; O2SAT 96
[2025-07-02] MEDS: Clotrimazole 1 % Cream 15 GM TUBE 1 APPL TOPICAL (21:07)
[2025-07-03] MEDS: methADONE HCl 20 MG/2 ML ORAL.CONC 140 MG PO (07:48)
[2025-07-03 08:46] VITALS: BP 115/69; PULSE 62; RESP 16; TEMP 36.5; O2SAT 97
[2025-07-03] MEDS: buPROPion HCl XL 300 MG TAB.ER.24H PO (08:50)
[2025-07-03] MEDS: Nicotine Polacrilex Lozenge 4 MG LOZENGE BUCCAL ×6 (08:52→21:37)
[2025-07-03] MEDS: Clotrimazole 1 % Cream 15 GM TUBE 1 APPL TOPICAL ×2 (08:52→21:36)
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
[2025-07-03 20:00] VITALS: BP 118/69; PULSE 72; RESP 18; TEMP 37.1; O2SAT 96
[2025-07-04] MEDS: Nicotine Polacrilex Lozenge 4 MG LOZENGE BUCCAL ×9 (01:50→23:42)
[2025-07-04] MEDS: methADONE HCl 20 MG/2 ML ORAL.CONC 140 MG PO (07:59)
[2025-07-04 08:00] VITALS: BP 126/73; PULSE 65; RESP 18; TEMP 36.6; O2SAT 96
[2025-07-04 08:47] VITALS: BP 126/73; PULSE 65
[2025-07-04] MEDS: buPROPion HCl XL 300 MG TAB.ER.24H PO (08:48)
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
[2025-07-04] MEDS: Clotrimazole 1 % Cream 15 GM TUBE 1 APPL TOPICAL ×2 (09:25→20:44)
--- NOTE | 2025-07-04 19:00 | MHC.EVENTN ---
Anxiety Patient rushed to nurses station c/o non radiating CP. VS done (and wnl), pt denies radiation, SOB,& no diaphoresis. Patient states that sometimes this is a start of an anxiety attack. PRN Hydroxyzine given with good effects. Pt states CP and sx are gone. Vital signs BP 144/76 HR 75 O2 96% RR 20 Temp: 97.5
[2025-07-04 20:00] VITALS: BP 115/68; PULSE 68; RESP 18; TEMP 36.4; O2SAT 95
[2025-07-05] MEDS: Nicotine Polacrilex Lozenge 4 MG LOZENGE BUCCAL ×4 (04:03→12:48)
[2025-07-05] MEDS: methADONE HCl 20 MG/2 ML ORAL.CONC 140 MG PO (07:41)
[2025-07-05 08:00] VITALS: BP 99/62; PULSE 70; TEMP 36.6; O2SAT 70
[2025-07-05] MEDS: buPROPion HCl XL 300 MG TAB.ER.24H PO (08:25)
[2025-07-05] MEDS: Clotrimazole 1 % Cream 15 GM TUBE 1 APPL TOPICAL (08:26)
--- NOTE | 2025-07-05 10:02 | PM.PSYDC ---
DS: Providers Provider Date of Service: 07/05/25 Date of admission: 06/23/25 18:14 Date of discharge: 07/05/25 Primary care physician: Skip Physician Admitting clinician: Serge Allan Attending physician on admission: Avinash Irwin Consults: 06/23/25 18:24 Consult to Hospitalist Routine Comment: Consulting Provider: [facility] Hospitalists Reason For Exam: Admission physical 06/23/25 21:56 Addiction Medicine Provider Routine Consulting Provider: Addiction Covering Reason for consultation: substance abuse Attending physician on discharge: Avinash Irwin Discharging clinician: Luisana Yeung DS: Diagnosis Discharge Diagnosis (1) Depression: Status: Acute (2) PTSD (post-traumatic stress disorder): Status: Acute (3) Opioid use disorder: Status: Acute (4) Homelessness: Status: Acute DS: Medications Discharge Medications Home Medications: Previous Rx's ?Medication ?Instructions ?Recorded aspirin 81 mg chewable tablet 81 mg PO DAILY #30 tabs 07/02/25 atorvastatin 80 mg tablet 80 mg PO BEDTIME #30 tabs 07/02/25 bupropion HCl 300 mg 24 hr tablet, 300 mg PO DAILY #30 tabs 07/02/25 extended release carvedilol 6.25 mg tablet 6.25 mg PO DAILY #30 tabs 07/02/25 clotrimazole 1 % topical cream 1 appl topical BID #28.4 grams 07/02/25 duloxetine 20 mg capsule,delayed 20 mg PO DAILY #20 caps 07/02/25 release gabapentin 400 mg capsule 800 mg (2 x 400 mg) PO TID #90 caps 07/02/25 hydroxyzine HCl 50 mg tablet 50 mg PO TID PRN Anxiety #90 tabs 07/02/25 losartan 25 mg tablet 25 mg PO DAILY #30 tabs 07/02/25 magnesium oxide 400 mg (241.3 mg 400 mg PO BEDTIME #30 tabs 07/02/25 magnesium) tablet methadone 10 mg/mL oral 140 mg (14 mL) PO DAILY@0800 #0 mL 07/02/25 concentrate (Methadose) mupirocin 2 % topical ointment 1 appl topical TID #14 grams 07/02/25 nicotine (polacrilex) 4 mg buccal 4 mg buccal Q2H PRN Nicotine 07/02/25 lozenge Cravings #200 ea olanzapine 5 mg tablet 5 mg PO BEDTIME #30 tabs 07/02/25 olanzapine 5 mg tablet 5 mg PO BID PRN agitation #60 tabs 07/02/25 polyethylene glycol 3350 17 gram 17 g PO DAILY PRN Constipation #30 07/02/25 oral powder packet ea tamsulosin 0.4 mg capsule 0.4 mg PO BEDTIME #30 caps 07/02/25 trazodone 50 mg tablet 50 mg PO BEDTIME MRX1 PRN Insomnia 07/02/25 #60 tabs Mental Status Exam Mental Status Exam Patient Appearance: Appropriate Patient Orientation: Person, Place, Time and Situation Level of Consciousness: Alert Patient Behavior: Talkative and Good Eye Contact Mood Description: Appropriate Affect Description: Appropriate Patient Cognition Impaired: No Ability to Follow Directions: Good Speech Pattern: Spontaneous Speech Memory Description: Intact Hallucinations: None Delusions: Not Present Perceptual Disturbances: Depersonalization Thought Process: Goal Oriented Thought Content: positive for Goal Oriented and positive for Suicidal Ideation (denies) Depressive Symptoms: Thoughts of /Suicide (denies) Judgement: Fair DS: Summary Hospital Course Hospital Course: 45-year-old male with psychiatric history of depression, multiple suicide attempts, and NATALIE (on methadone), and medical history of CO last year s/p stents x 3, was transferred from [facility] ED to [facility] Behavioral [facility] on 06/23/2025 for SI and suicide attempt in the context of not taking his antidepressants for about a week. Medications were evaluated and adjusted. Pt was offered full milieu therapy groups to assist in strengthening coping skills. Team applied to several programs so pt could continue his treatment after discharge. Pt will discharge to respite prior to acceptance into [facility]. Guest dosing for Methadone was organized by team. Status at Discharge Functional status at discharge: independent ambulation Overall status at discharge: patient is progressing back to baseline Time Spent with Patient Time attestation: Total time managing care of this patient today ____ minutes. Time spent: Less than 30 minutes Discharge Plan Discharge Anticipated Discharge Date/Time: 07/05/25 11:00 Patient Disposition: Xfer Inpatient Rehab Fac Discharge Diagnosis: PTSD Recurrent Major Depression- possibly Bipolar disorder Opiate Use Disorder Referrals: [facility] [Other] - 1 Week [facility] [Other] - 07/05/25 1:00 pm Referral Note: * You have been accepted into [facility] level of care with the plan to transition into [facility] for substance use Tx. [facility] [Other] - 1 Week Referral Note: *You are due to transition into [facility] level of care. Good luck! Physician,None [Primary Care Provider, Medical] - 1 Week Discharge Medications: New atorvastatin 80 mg Tablet 80 mg PO BEDTIME Qty: 30 1RF carvedilol 6.25 mg Tablet 6.25 mg PO DAILY Qty: 30 1RF Protocol: Hold for SBP/HR < HOLD for SBP < : 90 HOLD for HR < : 60 trazodone 50 mg Tablet 50 mg PO BEDTIME MRX1 PRN (Reason: Insomnia) Qty: 60 1RF polyethylene glycol 3350 17 gram Powder In Packet 17 g PO DAILY PRN (Reason: Constipation) Qty: 30 1RF gabapentin 400 mg Capsule 800 mg PO TID Qty: 90 1RF hydroxyzine HCl 50 mg Tablet 50 mg PO TID PRN (Reason: Anxiety) Qty: 90 1RF magnesium oxide 400 mg (241.3 mg magnesium) Tablet 400 mg PO BEDTIME Qty: 30 0RF tamsulosin 0.4 mg Capsule 0.4 mg PO BEDTIME Qty: 30 1RF losartan 25 mg Tablet 25 mg PO DAILY Qty: 30 1RF Protocol: Hold for SBP< HOLD for SBP < : 90 aspirin 81 mg Tablet,Chewable 81 mg PO DAILY Qty: 30 1RF methadone [Methadose] 10 mg/mL Concentrate 140 mg PO DAILY@0800 Qty: 0 0RF Rx Instructions: Partial Fill upon patient request. nicotine (polacrilex) 4 mg Lozenge 4 mg buccal Q2H PRN (Reason: Nicotine Cravings) Qty: 200 1RF bupropion HCl 300 mg Tablet Extended Release 24 Hr 300 mg PO DAILY Qty: 30 1RF duloxetine 20 mg Capsule,Delayed Release(Dr/Ec) 20 mg PO DAILY Qty: 20 1RF mupirocin 2 % Ointment 1 appl topical TID Qty: 14 1RF Protocol: Apply to: Apply to: Right great toe clotrimazole 1 % Cream 1 appl topical BID Qty: 28.4 2RF Protocol: Apply to: Apply to: Toenails olanzapine 5 mg tablet 5 mg PO BEDTIME Qty: 90 1RF Rx Instructions: And 5 mg po bid prn agitation Discontinued atorvastatin 80 mg tablet 80 mg PO BEDTIME carvedilol 6.25 mg tablet 6.25 mg PO DAILY trazodone 50 mg tablet 50 mg PO BEDTIME PRN (Reason: insomnia) olanzapine 5 mg tablet 5 mg PO BEDTIME hydroxyzine pamoate 50 mg capsule 50 mg PO TID PRN (Reason: anxiety) tamsulosin 0.4 mg capsule 0.4 mg PO BEDTIME losartan 25 mg tablet 25 mg PO DAILY gabapentin 300 mg capsule 300 mg PO TID topiramate 100 mg tablet 100 mg PO DAILY methadone [Methadone Intensol] 10 mg/mL Concentrate 110 mg PO DAILY Discharge Orders: Discharge Order (Routine); Ordered 07/05/25 Ordered By: Luisana Yeung Diet: Advance to usual diet Activity on Discharge: As tolerated Stand Alone Forms: Patient Portal Discharge page, Community Support Print Language: Nepalese Care Plan Goals: Abstinence from substances Mood and Behavioral Stabilization Health Concerns: Abstinence from substances Mood and Behavioral Stabilization Plan of Treatment: Attend [facility] Attend scheduled appointments Focus on recovery Take medications as directed Assessment: Pt agrees with plan of care Denies SI,HI,AH,VH Discharge Date/Time: 07/05/25 13:00
== END 2025-07-05 13:00 | DRG 885 ==
PROVIDERS: Nurse Practitioner Psychiatric/Mental Health; Admitting Provider Psychiatry & Neurology Psychiatry; Visit Provider Clinical Nurse Specialist Psychiatric/Mental Health, Adult
DX: F33.9 Major depressive disorder, recurrent, unspecified (principal); F11.20 Opioid dependence, uncomplicated; R45.851 Suicidal ideations; L60.0 Ingrowing nail; N40.0 Benign prostatic hyperplasia without lower urinary tract symptoms; F43.10 Post-traumatic stress disorder, unspecified; I25.10 Atherosclerotic heart disease of native coronary artery without angina pectoris; Y37.90XS Military operations, unspecified, sequela; Z91.51 Personal history of suicidal behavior; Z62.810 Personal history of physical and sexual abuse in childhood; Z95.5 Presence of coronary angioplasty implant and graft; Z87.891 Personal history of nicotine dependence; Z79.82 Long term (current) use of aspirin; Z79.899 Other long term (current) drug therapy
CPT/HCPCS: 36415; 80053; 80061; 83036; 84402; 84403; 84439; 84443

== ENCOUNTER → 2025-06-23 18:14 | Outpatient (BNV) | payer MEDICARE, MEDICAID, SELFPAY | PROVIDERS: Admitting Provider Psychiatry & Neurology Psychiatry; Visit Provider Physician Assistant | DX: Z00.8 Encounter for other general examination (principal) | CPT/HCPCS: 99222; 99499 ==

== ENCOUNTER → 2025-06-23 18:14 | Outpatient (BNV) | payer MEDICARE, MEDICAID, SELFPAY | PROVIDERS: Admitting Provider Psychiatry & Neurology Psychiatry; Visit Provider Nurse Practitioner Family | DX: F33.2 Major depressive disorder, recurrent severe without psychotic features (principal); F43.11 Post-traumatic stress disorder, acute; F11.90 Opioid use, unspecified, uncomplicated; Z59.00 Homelessness unspecified | CPT/HCPCS: 90792; 99231; 99232 ==